=== PATIENT | female | born 1990 | race Caucasian/White ===

== ENCOUNTER 2016-09-27 00:33 | Emergency (ER) | payer MEDICAID, OTHER, SELFPAY ==
[~2016-09-27] VITALS: Ht 157.5 cm; Wt 43.0 kg
[2016-09-27 01:38] LABS: MEAN CORPUSCULAR HEMOGLOBIN 33.3 pg (27.0-33.0); MEAN CORPUSCULAR HGB CONC 35.5 g/dl (32.0-36.5); MEAN CORPUSCULAR VOLUME 93.7 fl (80.0-96.0); RED CELL DISTRIBUTION WIDTH 13.3 % (11.5-14.5); WHITE BLOOD COUNT 8.9 K/mm3 (4.0-10.0)
[2016-09-27 01:57] LABS: CONTROL LINE HCG INT CTR LINE PRESENT; METHADONE URINE NEGATIVE (NEGATIVE)
[2016-09-27 02:19] LABS: ALBUMIN 3.8 GM/DL (3.2-5.2); ALBUMIN/GLOBULIN RATIO 1.31 (1.00-1.93); ALKALINE PHOSPHATASE 60 U/L (45-117); ALT/SGPT 18 U/L (12-78); ANION GAP 8 MEQ/L (8-16); AST/SGOT 15 U/L (15-37); BILIRUBIN,DIRECT < 0.1 MG/DL (0.0-0.2); BILIRUBIN,TOTAL 0.2 MG/DL (0.2-1.0); BLOOD UREA NITROGEN 6 MG/DL (7-18); CALCIUM LEVEL 8.4 MG/DL (8.5-10.1); CARBON DIOXIDE LEVEL 25 MEQ/L (21-32); CHLORIDE LEVEL 109 MEQ/L (98-107); CREATININE FOR GFR 0.71 MG/DL (0.55-1.02); GLOMERULAR FILTRATION RATE > 60.0 (>60); GLUCOSE, FASTING 96 MG/DL (70-105); POTASSIUM SERUM 4.1 MEQ/L (3.5-5.1); SODIUM LEVEL 142 MEQ/L (136-145); TOTAL PROTEIN 6.7 GM/DL (6.4-8.2)
[2016-09-27 03:31] VITALS: BP 112/66
== END 2016-09-27 03:33 | disposition home or self-care (01) ==
LOC: M ED 01:48
DX: F43.20 Adjustment disorder, unspecified (principal); F31.9 Bipolar disorder, unspecified; Z88.2 Allergy status to sulfonamides; F17.210 Nicotine dependence, cigarettes, uncomplicated; F12.20 Cannabis dependence, uncomplicated
CPT/HCPCS: 36415; 80048; 80076; 80306; 84443; 84703; 85027; 99284; G0480

== ENCOUNTER → 2016-11-11 | Outpatient (CLI) | payer OTHER, MEDICAID | LOC: M LRY 15:03 | PROVIDERS: ATTEND Nurse Practitioner Family | DX: M25.571 Pain in right ankle and joints of right foot (principal); Z53.9 Procedure and treatment not carried out, unspecified reason ==

== ENCOUNTER → 2016-11-11 | Outpatient (CLI) | payer OTHER, MEDICAID ==
--- NOTE | 2016-11-11 18:28 | REP ---
REASON: Ankle pain. No history of trauma. PRIORS: None. FINDINGS: No acute fracture or destructive osseous lesion. The mortise is intact. Signed by Mateus Moore DO 11/11/2016 06:59 P
== END ==
LOC: M WUC 17:10
PROVIDERS: ATTEND Nurse Practitioner Family
DX: M25.571 Pain in right ankle and joints of right foot (principal)
CPT/HCPCS: 73610; 96372; G0463; J1885

== ENCOUNTER → 2017-12-30 | Outpatient (CLI) | payer MEDICAID ==
[2017-12-30 12:38] LABS: ALBUMIN/GLOBULIN RATIO 0.86 (1.00-1.93); ALKALINE PHOSPHATASE 84 U/L (45-117); ALT/SGPT 11 U/L (12-78); ANION GAP 9 MEQ/L (8-16); AST/SGOT 14 U/L (7-37); BILIRUBIN,TOTAL 0.2 MG/DL (0.2-1.0); BLOOD UREA NITROGEN 7 MG/DL (7-18); CARBON DIOXIDE LEVEL 22 MEQ/L (21-32); CHLORIDE LEVEL 106 MEQ/L (98-107); GLOMERULAR FILTRATION RATE > 60.0 (>60); GLUCOSE, FASTING 71 MG/DL (70-100); POTASSIUM SERUM 4.1 MEQ/L (3.5-5.1); SODIUM LEVEL 137 MEQ/L (136-145); TOTAL PROTEIN 6.5 GM/DL (6.4-8.2)
[2017-12-31 14:19] LABS: BILE ACIDS FRACTIONATED 2.5 umol/L (4.7-24.5)
== END ==
LOC: M LAB 11:07
DX: Z34.82 Encounter for supervision of other normal pregnancy, second trimester (principal)
CPT/HCPCS: 80053

== ENCOUNTER → 2018-01-04 | Outpatient (CLI) | payer MEDICAID ==
[2018-01-04 10:04] LABS: GLUCOSE, FASTING 84 MG/DL (LESS THAN 95)
[2018-01-04 11:33] LABS: 1 HR GLUCOSE 127 MG/DL (LESS THAN 180)
[2018-01-04 12:55] LABS: 2 HR GLUCOSE 105 MG/DL (LESS THAN 155)
[2018-01-04 13:40] LABS: 3 HR GLUCOSE 76 MG/DL (LESS THAN 140)
[2018-01-05 08:50] LABS: AB SCREEN (INDIRECT COOMBS)VIS 1 1
== END ==
LOC: M LAB 08:28
DX: Z34.82 Encounter for supervision of other normal pregnancy, second trimester (principal)
CPT/HCPCS: 82951

== ENCOUNTER 2018-02-26 21:42 | Inpatient (IN) | payer MEDICAID ==
[2018-02-26] MEDS: LR 1,000 ML IV (23:28)
[2018-02-26] MEDS: PENICILLIN G POTASSIUM IV 5 MU in D5W MINI-BAG PLUS 100 ML IV (23:28)
[2018-02-26] MEDS: BETAMETHASONE SOLUSPAN 6MG/ML INJ 5ML (J0702) IM (23:28)
[2018-02-26 23:39] LABS: HEMOGLOBIN 11.8 g/dl (12.0-15.5); MEAN CORPUSCULAR HEMOGLOBIN 32.2 pg (27.0-33.0); MEAN CORPUSCULAR HGB CONC 34.7 g/dl (32.0-36.5); MEAN CORPUSCULAR VOLUME 92.6 fl (80.0-96.0); PLATELET COUNT, AUTOMATED 344 10^3/uL (150-450); RED BLOOD COUNT 3.67 10^6/uL (4.00-5.40); RED CELL DISTRIBUTION WIDTH 12.8 % (11.5-14.5); WHITE BLOOD COUNT 16.9 10^3/uL (4.0-10.0)
[2018-02-27 00:02] LABS: AMPHETAMINES URINE REFLEX NEGATIVE (NEGATIVE); BARBITURATES URINE REFLEX NEGATIVE (NEGATIVE); BENZODIAZEPINES URINE REFLEX NEGATIVE (NEGATIVE); COCAINE METABOLITE URINE REFLE NEGATIVE (NEGATIVE); METHADONE URINE REFLEX NEGATIVE (NEGATIVE); OPIATES URINE REFLEX NEGATIVE (NEGATIVE); PHENCYCLIDINE URINE REFLEX NEGATIVE (NEGATIVE)
[2018-02-27 00:03] LABS: CANNABINOIDS URINE REFLEX PENDING CONFIRMATION (NEGATIVE)
[2018-02-27] MEDS: PROMETHAZINE INJ 25 MG/ML VIAL (J2550) IV (02:37)
[2018-02-27] MEDS: BUTORPHANOL 2 MG/ML INJ (J0595) IV (02:38)
[2018-02-27] MEDS: PENICILLIN G POTASSIUM IV 2.5 MU in APPROPRIATE DILUENT 1 EA IV (03:40)
[2018-02-27] MEDS ORDERED: OXYTOCIN 30 UNITS IN 0.9% NaCl 500ML IV BAG (J2590) As Ordered (05:42)
[2018-02-27] MEDS: OXYTOCIN DRIP 30 UNITS in APPROPRIATE DILUENT 1 EA IV (06:27)
[2018-02-27] MEDS ORDERED: MEASLES,MUMPS,RUBELLA VACCINE INJ (MMR-II) (90707) SC (06:30)
[2018-02-27] MEDS ORDERED: ACETAMINOPHEN 500 MG TAB PO (06:30)
[2018-02-27] MEDS ORDERED: RHOGAM 300 MCG (1500 IU) INJ (J2790) IM (06:30)
[2018-02-27] MEDS ORDERED: METHYLERGONOVINE MALEATE 0.2 MG TAB PO (06:30)
[2018-02-27] MEDS ORDERED: DIBUCAINE 1% OINTMENT 30GM TOP (06:30)
[2018-02-27] MEDS ORDERED: DOCUSATE SODIUM 100 MG CAP PO (06:30)
[2018-02-27] MEDS ORDERED: PRENATAL VITAMINS CHEWABLE TABLET PO ×2 (09:00→21:00)
[2018-02-27] MEDS: IBUPROFEN 800 MG TAB PO (10:03)
[2018-02-27] MEDS: ADACEL/BOOSTRIX VACCINE (DIPHTH/PERTUSS/ACELL/TETANUS)0.5ML SYR (90715) IM (15:56)
== END 2018-02-27 16:09 | disposition home or self-care (01) | DRG 560 ==
LOC: M LDO 21:42 → M OBS 02-27 08:26 → M LDI 23:03
PROVIDERS: Advanced Practice Midwife
PROC: 10E0XZZ Delivery of Products of Conception, External Approach (ICD-10-PCS; principal; 2018-02-27)
DX: O60.13X0 Preterm labor second trimester with preterm delivery third trimester, not applicable or unspecified (principal); F17.210 Nicotine dependence, cigarettes, uncomplicated; O99.334 Smoking (tobacco) complicating childbirth; Z37.0 Single live birth; Z3A.35 35 weeks gestation of pregnancy; Z88.2 Allergy status to sulfonamides; O09.31 Supervision of pregnancy with insufficient antenatal care, first trimester; O09.32 Supervision of pregnancy with insufficient antenatal care, second trimester